=== PATIENT | female | born 1990 | race Caucasian/White ===

== ENCOUNTER → 2018-05-03 | Outpatient (CLI) | payer OTHER | LOC: M SMT 09:14 | PROVIDERS: ATTEND Obstetrics & Gynecology | DX: O20.0 Threatened abortion (principal); Z3A.00 Weeks of gestation of pregnancy not specified ==

== ENCOUNTER → 2018-05-06 | Outpatient (CLI) | payer OTHER | LOC: M SMT 11:36 | PROVIDERS: ATTEND Obstetrics & Gynecology | DX: O20.0 Threatened abortion (principal); Z3A.00 Weeks of gestation of pregnancy not specified ==

== ENCOUNTER → 2018-05-23 | Outpatient (CLI) | payer OTHER | LOC: M SMT 11:51 | PROVIDERS: ATTEND Obstetrics & Gynecology | DX: O03.4 Incomplete spontaneous abortion without complication (principal) ==

== ENCOUNTER → 2020-02-09 | Outpatient (CLI) | payer OTHER ==
--- NOTE | 2020-02-09 14:52 | REP ---
INDICATION: DATING AND VIABILITY. COMPARISON: None. TECHNIQUE: Real-time sonographic evaluation of gravid uterus performed. FINDINGS: There is a single living intrauterine gestation. The estimated gestational age is 13 weeks 2 days based on a crown-rump length of 72 mm. EDC 08/14/2020. heart rate 155 beats per minute. There is no subchorionic hemorrhage. Cervix is closed and measures 3.1 cm in length. The ovaries are within normal limits. IMPRESSION: Viable intrauterine gestation as above. <Electronically signed by Jim Nieves > 02/09/20 [id number]
== END ==
LOC: M WHC 11:52
PROVIDERS: ATTEND Advanced Practice Midwife
DX: Z3A.00 Weeks of gestation of pregnancy not specified (principal)

== ENCOUNTER → 2020-02-20 | Outpatient (CLI) | payer OTHER | LOC: M LAB 07:47 | PROVIDERS: ATTEND Advanced Practice Midwife | DX: Z34.82 Encounter for supervision of other normal pregnancy, second trimester (principal) ==

== ENCOUNTER → 2020-02-21 | Outpatient (CLI) | payer OTHER | LOC: M PLALAB 14:44 | PROVIDERS: ATTEND Specialist | DX: O09.892 Supervision of other high risk pregnancies, second trimester (principal); Z3A.00 Weeks of gestation of pregnancy not specified ==

== ENCOUNTER → 2020-03-14 | Outpatient (CLI) | payer OTHER ==
--- NOTE | 2020-03-15 14:03 | REP ---
INDICATION: ANATOMY. Gestational diabetes affecting . COMPARISON: Comparison study February 09, 2020.. TECHNIQUE: Transabdominal obstetric sonography. FINDINGS: Scanning through the gravid uterus demonstrates a viable single intrauterine gestation in cephalic lie. motion is observed and heart rate is recorded at 156 beats per minute. A anterior placenta is seen, grade 1, without evidence of placenta previa. Amniotic fluid is subjectively normal. Closed cervical length is measured at 3.9 cm transabdominally. No extrauterine abnormality is observed. Amniotic fluid is subjectively normal. The following anatomic structures are identified today and felt to be unremarkable: cranium and intracranial anatomy, nuchal fold face and profile, left ventricular outflow tract view, left-sided stomach, abdominal wall cord insertion, urinary bladder, spine, upper and lower extremities, three-vessel cord. The following anatomic structures were less than optimally seen: nose and lips, four-chamber heart and right ventricular outflow tract view, diaphragm, right and left kidney. Some thinning of the uterine wall is seen at the previous scar. Scan quality is inhibited due to early gestational age maternal body habitus and position. Biometry chart: BPD 3.7 cm, 17 weeks 3 days Head circumference 14.6 cm, 17 weeks 5 days Abdominal circumference 12.2 cm, 17 weeks 6 days Femur length 2.8 cm, 18 weeks 4 days Humeral length 2.7 cm, 18 weeks 3 days HC AC ratio normal 1.20 Cephalic index normal 0.69 Estimated weight 223 g, 0 lb 7 oz, 38th percentile for 18 weeks 0 days IMPRESSION: Viable single intrauterine gestation at 18 weeks 0 days by today's composite sonographic criteria. ANTHONY by today's sonography August 15, 2020. Expected gestational age estimate based on prior sonography 18 weeks 0 days. ANTHONY by prior sonography August 14, 2020. anatomic survey less than complete as above <Electronically signed by Ludwin Barbosa > 03/15/20 [id number]
== END ==
LOC: M WHC 15:16
PROVIDERS: ATTEND Specialist
DX: Z34.82 Encounter for supervision of other normal pregnancy, second trimester (principal)

== ENCOUNTER → 2020-04-18 | Outpatient (CLI) | payer OTHER ==
--- NOTE | 2020-04-22 18:41 | REP ---
INDICATION: F/U ANATOMY EXAM DONE- 04/18/20 COMPARISON: 03/14/2020 TECHNIQUE: Transabdominal obstetrical ultrasound with color Doppler evaluation. FINDINGS: Examination demonstrates a single live intrauterine in cephalic presentation. motion is identified by technologist. Placenta is noted anterior and grade 1 without evidence for placenta previa or abruption. Amniotic fluid volume is normal. Cervix measures 4.2 cm in length and appears closed. Gestational age by 1st ultrasound 23 weeks 1 days with ANTHONY 08/14/2020. Gestational age by current measurements 23 weeks 3 days with ANTHONY 08/12/2020. FHR equals 149 beats per minute. Estimated weight 607 grams (63rdpercentile). Anatomical assessment demonstrates normal structures including four-chamber heart/ventricular outflow tracts, kidneys, and nose/lips. IMPRESSION: 1. Single live intrauterine in cephalic presentation demonstrating appropriate interval growth. 2. Continued limited evaluation of the diaphragm due to positioning. Remainder of the anatomical assessment is complete and normal. <Electronically signed by Abdirahman Grimaldo > 04/22/20 [id number]
== END ==
LOC: M WHC 10:43
PROVIDERS: ATTEND Specialist
DX: Z36.89 Encounter for other specified antenatal screening (principal); Z3A.23 23 weeks gestation of pregnancy

== ENCOUNTER → 2020-05-08 | Outpatient (REF) | payer OTHER ==
[2020-05-08 11:33] LABS: HEMATOCRIT 36.1 % (36.0-47.0); HEMOGLOBIN 12.1 g/dl (12.0-15.5); MEAN CORPUSCULAR HEMOGLOBIN 31.6 pg (27.0-33.0); MEAN CORPUSCULAR HGB CONC 33.5 g/dl (32.0-36.5); MEAN CORPUSCULAR VOLUME 94.3 fl (80.0-96.0); PLATELET COUNT, AUTOMATED 237 10^3/uL (150-450); RED BLOOD COUNT 3.83 10^6/uL (4.00-5.40); WHITE BLOOD COUNT 11.5 10^3/uL (4.0-10.0)
== END ==
LOC: M PLALAB 08:35
PROVIDERS: ATTEND Specialist
DX: Z34.90 Encounter for supervision of normal pregnancy, unspecified, unspecified trimester (principal); Z3A.00 Weeks of gestation of pregnancy not specified
CPT/HCPCS: 36415; 85027; 86850; 86900; 86901; G0463

== ENCOUNTER → 2020-06-05 | Outpatient (CLI) | payer OTHER ==
--- NOTE | 2020-06-06 08:01 | REP ---
INDICATION: BPP/GROWTH/GEST DIABETES COMPARISON: 04/18/2020 TECHNIQUE: Transabdominal obstetrical ultrasound with color Doppler evaluation. FINDINGS: Examination demonstrates a single live intrauterine in cephalic presentation. motion is identified by technologist. Placenta is noted anterior and grade 2 without evidence for placenta previa or abruption. Amniotic fluid volume is normal. Cervix measures 3.2 cm in length and appears closed.. Gestational age by LMP and 1st ultrasound 30 weeks 0 days with ANTHONY 08/14/2020. Gestational age by current measurements 31 weeks 5 days with ANTHONY 08/02/2020. FHR equals 140 beats per minute. LASHAY: 18.6 cm Biophysical profile score: 8/8 Estimated weight 1915 grams (greater than 97thpercentile based on age by 1st ultrasound at 30 weeks 0 days). Umbilical artery SD ratio: 2.62, 2.94 (1.96-4.10) diaphragm appears normal. Technologist cannot exclude a small cystic structure adjacent to the urinary bladder. ultrasound follow-up should be considered. IMPRESSION: 1. Single live advanced gestation in cephalic presentation demonstrating greater than expected interval growth and correlation is required. 2. Anatomical findings as described above may warrant follow-up ultrasound evaluation of the bladder/pelvis. <Electronically signed by Abdirahman Grimaldo > 06/06/20 [id number]
== END ==
LOC: M PLAIMG 14:58
PROVIDERS: ATTEND Obstetrics & Gynecology
DX: O24.415 Gestational diabetes mellitus in pregnancy, controlled by oral hypoglycemic drugs (principal); Z3A.30 30 weeks gestation of pregnancy

== ENCOUNTER → 2020-07-17 | Outpatient (REF) | payer OTHER ==
[~2020-07-17] MED LIST: CLAR5TAB11 PO; GLYB5TAB6 GT; IBUP80TA PO; LANTINJ4 SC; PERCOCET PO; STUACAP PO
== END ==
LOC: M SFHCWAGY 12:52
PROVIDERS: ATTEND Specialist
DX: O24.113 Pre-existing type 2 diabetes mellitus, in pregnancy, third trimester (principal)
CPT/HCPCS: 59025; 87081; G0463

== ENCOUNTER → 2020-07-18 | Outpatient (CLI) | payer OTHER ==
--- NOTE | 2020-07-18 15:50 | REP ---
INDICATION: GROWTH/DIABETES COMPARISON: 06/05/2020 TECHNIQUE: Transabdominal obstetrical ultrasound with color Doppler evaluation. FINDINGS: Examination demonstrates a single live intrauterine in cephalic presentation. motion is identified by technologist. Placenta is noted anterior and grade 2 without evidence for placenta previa or abruption. Amniotic fluid volume is normal. Cervix measures 3.5 cm in length and appears closed.. Gestational age by LMP and 1st U/S 36 weeks 1 day with ANTHONY 08/14/2020. Gestational age by current measurements 38 weeks 6 days with ANTHONY 07/26/2020. FHR equals 130 beats per minute. BPD: 9.5 cm at 30 weeks 5 days HC: 34.5 cm at 39 weeks 6 days AC: 36.6 cm at 40 weeks 3 days FL: 7.3 cm at 37 weeks 4 days HL: 6.5 cm at 38 weeks 0 days HC/AC: 0.94 Estimated weight 3830 grams (greater than 97th percentile based on age by 1st ultrasound). LASHAY: 17.2 cm (7.7-24.8) Umbilical artery SD ratio: 2.36, 2.14 (1.63-3.50) IMPRESSION: Single live intrauterine in cephalic presentation. Greater than expected interval growth cannot be excluded and warrants correlation. <Electronically signed by Abdirahman Grimaldo > 07/18/20 [id number]
== END ==
LOC: M WHC 15:01
PROVIDERS: ATTEND Specialist
DX: O24.415 Gestational diabetes mellitus in pregnancy, controlled by oral hypoglycemic drugs (principal); Z3A.38 38 weeks gestation of pregnancy

== ENCOUNTER 2020-07-26 12:18 | Inpatient (IN) | payer OTHER ==
[2020-07-26] VITALS (18 sets, daily range): BP systolic 96–123; BP diastolic 52–63
[~2020-07-26] VITALS: Ht 162.6 cm; Wt 114.3 kg
[2020-07-26] MEDS ORDERED: LACTATED RINGER'S 1000 ML IV STA (12:47)
[2020-07-26] MEDS ORDERED: LIDOCAINE 1% MDV 20ML VIAL INFIL PRN (12:50)
[2020-07-26] MEDS ORDERED: METHYLERGONOVINE MALEATE 0.2 MG/ML VIAL (J2210) IM PRN (12:50)
[2020-07-26] MEDS ORDERED: OXYTOCIN DRIP 30 UNITS in IV 1 EA IV PRN (12:50)
[2020-07-26] MEDS ORDERED: OXYTOCIN INJ 10 UNITS/ML VIAL (J2590) IV PRN (12:50)
[2020-07-26 13:16] LABS: HEMATOCRIT 33.9 % (36.0-47.0); HEMOGLOBIN 11.3 g/dl (12.0-15.5); MEAN CORPUSCULAR HEMOGLOBIN 30.6 pg (27.0-33.0); MEAN CORPUSCULAR HGB CONC 33.3 g/dl (32.0-36.5); MEAN CORPUSCULAR VOLUME 91.9 fl (80.0-96.0); PLATELET COUNT, AUTOMATED 202 10^3/uL (150-450); RED BLOOD COUNT 3.69 10^6/uL (4.00-5.40); WHITE BLOOD COUNT 8.7 10^3/uL (4.0-10.0)
[2020-07-26] MEDS ORDERED: CLAR5TAB11 PO ×2 (13:24)
[2020-07-26] MEDS ORDERED: LANTINJ4 SC (13:25)
[2020-07-26] MEDS ORDERED: GLYB5TAB6 GT (13:25)
[2020-07-26] MEDS ORDERED: STUACAP PO (13:27)
[2020-07-26 13:46] LABS: ALBUMIN 2.3 GM/DL (3.2-5.2); ALT/SGPT 13 U/L (12-78); BILIRUBIN,TOTAL 0.4 MG/DL (0.2-1.0); BLOOD UREA NITROGEN 8 MG/DL (7-18); CALCIUM LEVEL 8.5 MG/DL (8.5-10.1); CARBON DIOXIDE LEVEL 22 MEQ/L (21-32); CHLORIDE LEVEL 108 MEQ/L (98-107); CREATININE FOR GFR 0.46 MG/DL (0.55-1.30); GLOMERULAR FILTRATION RATE > 60.0 (>60); GLUCOSE, FASTING 167 MG/DL (70-100); POTASSIUM SERUM 4.2 MEQ/L (3.5-5.1); SODIUM LEVEL 138 MEQ/L (136-145); TOTAL PROTEIN 5.8 GM/DL (6.4-8.2)
[2020-07-26] MEDS ORDERED: OXYTOCIN DRIP 30 UNITS in IV 1 EA IV SCH (13:55)
[2020-07-26] MEDS: LR 1,000 ML IV SCH (13:55)
--- NOTE | 2020-07-26 14:23 | HPEPDOC ---
Obstetrical History & Physical General Date of Admission Jul 26, 2020 at 12:18 History of Present Illness Chief Complaint: Induction of labor (pregestational diabetes) Age: 30 : 7 Term: 1 Pre-term: 0 Abortions: 5 Livin Care Care: Good Care Dating Final EDC by: 1st trimester (US) EGA at Admission: 37 (+1) Antepartum Course Pre- weight (lbs.): 226 Past Medical History Past Obstetrical History : Past Obstetrical History: Primgravida (2016) Type of Delivery: Ceserean section Sex of : Male (7#8) Complications: Yes (preeclampsia, GDM, failed IOL) PHARMACEUTICAL SALES SPECIALIST History: Spontaneous Past Medical History Medical History OCD, ADHD, asymptomatic enlarged thyroid Surgical History: Appendectomy, section Family History Significant Family History: Diabetes, Heart disease, Hypertension, Other (bipolar, anxiety) Social History Marital Status: Family situation: Spouse/partner home Psychosocial History: Att. deficit disorder * Smoker: non-smoker Alcohol: Denies Drugs: denies Abuse Violence Screening Have you been hit/kicked/slapp: No Have you been sexually assault: No Imunizations Tdap status: declined Influenza Status: declined Allergies Coded Allergies: No Known Allergies (Unverified , 07/26/20) Medications Scheduled Insulin Glargine,Hum.rec.anlog (Lantus Solostar) 100 Unit/1 Ml Insuln.pen, 20 UNIT SC QPM Loratadine (Claritin) 5 Mg Tab.rapdis, 1 TAB PO DAILY for allergy symptoms Miscellaneous Medications Glyburide (Glyburide) 5 Mg Tablet, 5 MG GT Pnv No.63/Iron,Carb/Folic/Dha (Terry One Capsule) 1 Each Capsule, 1 CAP PO Physical Examination Physical Examination GENERAL: Alert and oriented times three. BREAST: . ABDOMEN: Gravid and non-tender to touch. FETUS: Is vertex (VTX) by sterile vaginal examination (SVE), fetus is vertex (VTX) by Peyman. EFW 8.5-9# HEART RATE: Regular rate and rhythm. LUNGS: Clear to auscultation (CTA). EXTREMITIES: No edema. No clonus. Deep tendon reflexes (DTRs) + 2. Laboratory Data 24H LABS Laboratory Tests 2 07/26/20 12:44: Serology Scanned Report Hepatitis B Testing 07/26/20 12:54: Nucleated Red Blood Cells % (auto) 0.0 07/26/20 12:55: Anion Gap 8, Glomerular Filtration Rate > 60.0, Calcium Level 8.5, Total Bilirubin 0.4, Aspartate Amino Transf (AST/SGOT) 9, Alanine Aminotransferase (ALT/SGPT) 13, Alkaline Phosphatase 127H, Total Protein 5.8L, Albumin 2.3L, Al bumin/Globulin Ratio 0.7L CBC/BMP Laboratory Tests 07/26/20 12:54 07/26/20 12:55 Pertinent Laboratoy Data Blood Type: O+ RBC Antibody Screen: Negative HIV: Negative Hepatitis B: Negative Hepatitis C: Negative Rapid Plasma Reagin: Nonreactive Rubella: Nonreactive (equivocal) Chlamydia/Gonorrhea: Negative Group B Streptococcus: Negative Glucose Tolerance Test: 176 (106, 231, 191, 126. pregestational diabetes) Anatomy Ultrasound Ultrasound Date: Mar 14, 2020 Placenta Location: Anterior Normal Anatomy: Yes (incomplete) Placenta Previa: No Estimated Weight (grams): 223 (38%; thinning of scar noted) Other Ultrasounds 02/08/2021 13w2d, ANTHONY 08/14/2020 04/22/2020 Cephalic, anterior placenta, no previa, normal fluid. EFW 607gm, 63%, normal f/u 06/05/2020 cephalic, anterior placenta, no previa. LASHAY 18.6. BPP 8/8. EFW 1915gm, >97% 07/18/2020 cephalic, anterior placenta, no previa. LASHAY 17.2. EFW 3830gm, >97%. S/D 2.36 and 2.14 Steroid Therapy Steroid Therapy: No Vaginal Examination Dilation: 1cm Effacement: 50% Station: -3 Cervical Consistency: Medium Cervical Position: Posterior Presentation: Cephalic presentation Assessment Heart Rate (FHR): 145 Variability: Moderate Accelerations: Positive Decelerations: None Tocometer Contractions: No Assessment/Plan Assessment Antoinette is a 30-year-old (G)7 para (P)1-0-5-1 at 37+1 weeks by 13-week ultrasound. Presents to Labor and Delivery (L&D) induction due to pregestational diabetes, currently on insulin and pm "glyburide depending on what I eat." Risks and benefits of induction of TOLAC have been thoroughly reviewed with patient including uterine rupture. Patient is aware of sono showing thinning of previous scar and desires attempt at TOLAC. Plan Admit and orient per consult Dr Paulino Radio Program Director and consent. Diet: clear liquids. Group B Streptococcus (GBS) negative. Labs and intravenous (IV) per unit protocol. Counseled on Pitocin and induction of labor (IOL). Unsuccessful placement of cooks catheter attempted. Insulin drip as required. Lactated Ringers (LR): Bolus 500 mL, then at 125 mL/hr. Plans to labor ad jonathon Anticipate successful . C-S as appropriate. Kristy Sellers CNM Jul 26, 2020 14:04
[2020-07-26] MEDS ORDERED: INSULIN IV RATE CHANGE DOCUMENTATION ML/HR XX SCH (14:30)
[2020-07-26] MEDS ORDERED: INSULIN REGULAR IN 0.9 % NACL 100 UNIT in IV 1 EA IV SCH ×2 (14:30)
[2020-07-26] MEDS ORDERED: NS 1,000 ML IV SCH (14:30)
[2020-07-26 14:34] LABS: HEMOGLOBIN A1c 5.5 %
--- NOTE | 2020-07-26 20:29 | IPNPDOC ---
Text Note Date of Service The patient was seen on 07/26/20. NOTE Progress Denies current discomfort. Low dose pitocin all night due to history. Refuses lopez bulb at this time. UC 2-5 minutes x 30-45 seconds FH 135, Cat I SVE 150/-3, anterior. Crying with exam, guarding. Will maintain low dose pitocin ripening all night. VS,Fishbone, I+O VS, Fishbone, I+O Laboratory Tests 07/26/20 12:54 07/26/20 12:55 Vital Signs Date Time Temp Pulse Resp B/P (MAP) Pulse Ox O2 Delivery O2 Flow Rate FiO2 07/26/20 18:53 74 98/57 (71) 07/26/20 18:02 97.4 18 Kristy Sellers CNM Jul 26, 2020 20:29
[2020-07-27] VITALS (21 sets, daily range): BP systolic 83–119; BP diastolic 45–69
--- NOTE | 2020-07-27 05:24 | IPNPDOC ---
Text Note Date of Service The patient was seen on 07/27/20. NOTE Progress Remains comfortable Cat I tracing UC 2-4 minutes, mild Pitocin at 6mu GLucose reading 116, pt refused insulin Will update Dr Paulino. VSFiona, I+O VSFiona, I+O Laboratory Tests 07/26/20 12:54 07/26/20 12:55 Vital Signs Date Time Temp Pulse Resp B/P (MAP) Pulse Ox O2 Delivery O2 Flow Rate FiO2 07/27/20 00:53 86 113/64 (80) 07/26/20 18:02 97.4 18 I&O- Last 24 Hours up to 6 AM 07/27/20 05:59 Intake Total 320 ml Output Total 2900 ml Balance -2580 ml Kristy Sellers CNM Jul 27, 2020 05:24
--- NOTE | 2020-07-27 15:58 | IPNPDOC ---
Obstetrical Progress Note Date of Service Jul 27, 2020 Subjective 30yo at 37w3d IOL for DM. Objective Vital Signs Date Time Temp Pulse Resp B/P (MAP) Pulse Ox O2 Delivery O2 Flow Rate FiO2 07/27/20 14:13 73 18 119/69 (86) 07/26/20 18:02 97.4 Assessment Variability: Moderate Heart Rate Tracing: Category I Tocometer Contractions: Yes Sterile Vaginal Examination Dilation: 1cm (unchanged from previous exam) Effacement (%): 50% Station: -3 Cervical Position: Posterior Postion/Presentation: Cephalic presentation Assessment and Plan Age: 30 : 7 Livin Status: Reassuring Anticipate: Section Additional Comments Patient declines cook cath or other methods of induction and desires to proceed with repeat c/s. Has also expressed desire for permeant sterilization with SAMMY BURR MD. Jul 27, 2020 15:58
[2020-07-27] MEDS ORDERED: ceFAZolin SOD 2 GM in IV 1 EA IV ONE (16:00)
[2020-07-27] MEDS ORDERED: BICITRA 30ML SOLN UDC PO ONE (16:00)
[2020-07-27] MEDS ORDERED: AZITHROMYCIN INJ 500 MG, VIAL MATE ADAPTER 1 EACH in NS 250 ML IV ONE (16:00)
[2020-07-27] MEDS: LR 1,000 ML IV SCH (17:12)
[2020-07-27] MEDS ORDERED: MORPHINE PRES-FREE INJ 10 MG/10 ML VIAL (J2274) As Ordered ONE (17:55)
[2020-07-27] MEDS ORDERED: OXYTOCIN INJ 10 UNITS/ML VIAL (J2590) As Ordered ONE ×2 (17:56→17:59)
[2020-07-27] MEDS ORDERED: ONDANSETRON 4MG/2ML VIAL As Ordered ONE (17:59)
[2020-07-27] MEDS ORDERED: KETOROLAC 60MG 2ML VIAL As Ordered ONE (17:59)
[2020-07-27] MEDS ORDERED: NALOXONE INJ 0.4MG/1ML VIAL (J2310 PER 1MG) IV PRN ×2 (18:19)
[2020-07-27] MEDS ORDERED: diphenhydrAMINE 50MG/ML VIAL (J1200) IV PRN (18:19)
[2020-07-27] MEDS ORDERED: METOCLOPRAMIDE INJ 10MG/2ML VIAL (J2765 PER 1) IV PRN ×2 (18:19→19:40)
[2020-07-27] MEDS ORDERED: ONDANSETRON 4MG/2ML VIAL IV PRN ×3 (18:19→19:40)
[2020-07-27] MEDS ORDERED: NALBUPHINE HCL 10 MG/ML AMP (J2300) IV PRN (18:19)
[2020-07-27] MEDS ORDERED: ATROPINE SULF 0.4 MG/ML 1ML VIAL (J0461) As Ordered ONE (18:23)
[2020-07-27] MEDS ORDERED: SIMETHICONE 80MG CHEW TAB PO PRN (18:25)
[2020-07-27] MEDS ORDERED: LR 1,000 ML IV SCH ×2 (18:25→19:40)
[2020-07-27] MEDS ORDERED: PERCOCET 5MG/325MG TAB PO PRN ×2 (18:25→19:40)
[2020-07-27] MEDS ORDERED: RHOGAM 300 MCG (1500 IU) INJ (J2790) IM SCH (18:25)
[2020-07-27] MEDS ORDERED: MEASLES,MUMPS,RUBELLA VACCINE INJ (MMR-II) (90707) SC SCH (18:25)
[2020-07-27] MEDS ORDERED: MOM 30ML SUSPENSION UDC PO PRN (18:25)
[2020-07-27] MEDS ORDERED: OXYTOCIN DRIP 30 UNITS in IV 1 EA IV SCH (18:25)
[2020-07-27] MEDS ORDERED: ePHEDrine SULFATE 25 MG/5 ML(5MG/ML) SYRINGE As Ordered ONE (18:49)
--- NOTE | 2020-07-27 19:21 | ROOPDOC ---
[facility] Report Of Operation Report of Operation DATE OF PROCEDURE: 07/27/20 SURGEON: Oneida Paulino M.D. CUSTOMER RELATIONS ASSISTANT: Channing Wen M.D. ( essential for tissue retractions, exposure and delivery of ) PROCEDURE: Repeat section with Bilateral [place] tubal ligation PREOPERATIVE DIAGNOSIS: 1. History of prior section 2. Failed trial labor after section 3. Satisfied parity with undesired fertility POSTOPERATIVE DIAGNOSIS: 1. History of prior section 2. Failed trial labor after section 3. Satisfied parity with undesired fertility ANESTHESIA: Spinal ESTIMATED BLOOD LOSS: 700 mL URINE OUTPUT: 100 mL INTRAVENOUS FLUIDS:1200 mL of lactated Ringer's solution PREOPERATIVE ANTIBIOTICS:. 2 g of Ancef and 500 azithromycin OPERATIVE FINDINGS: Liveborn female , Apgars 5 and 9. Weight 4260 g or 9 lbs. 6 oz. SPECIMENS: Bilateral segments of fallopian tubes DESCRIPTION OF PROCEDURE: After informed consent was obtained and written consent was reviewed. The patient was brought to the operating room where spinal anesthesia was placed. She was then placed in the supine position with a left lateral tilt. Calvert catheter was placed and to gravity. Patient was then prepped and draped in the normal sterile fashion. A timeout operating room was performed identifying the patient, procedure be performed as well as drug allergies. Anesthesia was tested and deemed to be adequate. Pfannenstiel skin incision was made and this was carried down to the underlying rectus fascia. The fascia was then scored and this incision was extended bilaterally. The fascia was then d issected off the underlying rectus muscle superiorly and inferiorly. The rectus muscles were then in the midline. The peritoneum is then entered. Vesicouterine peritoneum was then tented and excised and a bladder flap was created. Mobius retractor was then placed. Next, a curvilinear incision was then made in the lower uterine segment. Amniotomy was performed, productive, clear fluid. The head was brought to the level of the incision atraumatically and delivered along the shoulders and corpus. The cord was clamped x2. The was brought over to the warmer with a good cry. Placenta was drained and delivered grossly intact. The uterus was cleared of all clots and debris and the uterine incision was then closed using 0 Vicryl in a running locking fashion followed by a second layer of 0 Vicryl in a running nonlocking fashion for imbrication. Attention was then turned to a bilateral [place] tubal ligation. A window was created in the right mesosalpinx. This area was doubly ligated with 3-0 chromic and was excised with good hemostasis noted. In a similar fashion, the left fallopian tube was placed on traction. A window was created in the mesosalpinx. This area was doubly ligated with 3-0 chromic and was excised, and hemostasis was noted. The abdomen suctioned. Surgical sites reinspected and noted be hemostatic. The retractor was then removed. The anterior peritoneum was then reapproximated with 3-0 Vicryl. The rectus muscles were reapproximated 3-0 Vicryl. The fascia was then closed using 0 Vicryl in a running nonlocking fashion. The subcutaneous tissues was then irrigated and suctioned. Subcutaneous tissue was reapproximated using 3-0 Vicryl. Several subdermal stitch is placed using 3-0 Vicryl and the skin was closed with 4-0 Monocryl and subcuticular fashion. This incision was then cleaned and dried and was dressed. The patient was then taken to recovery in stable condition. All counts were correct. My surgical aides teacher Dr. Wen played in an essential role during the operation. He assisted with tissue identification retraction, delivery of the , as well as wound closure. ONEIDA PAULINO MD. Jul 27, 2020 19:21
[2020-07-27] MEDS ORDERED: OXYTOCIN 30 UNITS IN 0.9% NaCl 500ML IV BAG (J2590) As Ordered ONE (19:32)
[2020-07-27] MEDS ORDERED: fentaNYL 100 MCG/2 ML INJECTION (J3010) IV PRN (19:40)
[2020-07-27] MEDS ORDERED: fentaNYL 100 MCG/2 ML INJECTION (J3010) As Ordered ONE (19:43)
[2020-07-27] MEDS ORDERED: PERCOCET 5MG/325MG TAB As Ordered ONE (20:17)
[2020-07-27] MEDS: PERCOCET 5MG/325MG TAB PO PRN (20:18)
[2020-07-27] MEDS: DOCUSATE SODIUM 100MG CAPSULE PO SCH (21:16)
[2020-07-28] VITALS (7 sets, daily range): BP systolic 101–119; BP diastolic 52–69
[2020-07-28] MEDS: KETOROLAC 30 MG/ML 1ML VIAL IV SCH ×3 (00:52→13:57)
[2020-07-28] MEDS: PERCOCET 5MG/325MG TAB PO PRN ×3 (03:08→18:35)
[2020-07-28 07:52] LABS: HEMATOCRIT 28.8 % (36.0-47.0); HEMOGLOBIN 9.4 g/dl (12.0-15.5); MEAN CORPUSCULAR HEMOGLOBIN 30.2 pg (27.0-33.0); MEAN CORPUSCULAR HGB CONC 32.6 g/dl (32.0-36.5); MEAN CORPUSCULAR VOLUME 92.6 fl (80.0-96.0); PLATELET COUNT, AUTOMATED 209 10^3/uL (150-450); RED BLOOD COUNT 3.11 10^6/uL (4.00-5.40); WHITE BLOOD COUNT 10.9 10^3/uL (4.0-10.0)
[2020-07-28] MEDS: DOCUSATE SODIUM 100MG CAPSULE PO SCH ×2 (08:10→21:09)
[2020-07-28] MEDS: PRENATAL VITAMINS CHEWABLE TABLET PO SCH (08:10)
--- NOTE | 2020-07-28 13:45 | IPNPDOC ---
Progress Note Date of Service: Jul 28, 2020 Day#: 1 Progress Note SUBJECT: Doing well without complaints. Ambulating, voiding and pain is well- controlled. Reports minimal lochia. OBJECTIVE: VITAL SIGNS: Within normal limits, afebrile. Alert and oriented times three. Abdomen: Fundus firm at U-2. Soft, NTTP. Incision: dressed Ext: neg calf tenderness. ASSESSMENT: /postoperative day #1 status post delivery. Recovering in stable condition. PLAN: 1. Continue routine /postoperative care 2. Discharge plans for tomorrow VS, I&O, 24H, Fishbone Vital Signs/I&O Vital Signs Date Time Temp Pulse Resp B/P (MAP) Pulse Ox O2 Delivery O2 Flow Rate FiO2 07/28/20 12:56 12 07/28/20 10:00 97.0 82 105/56 (72) 98 Room Air I&O- Last 24 Hours up to 6 AM 07/28/20 06:00 Intake Total 1100 ml Output Total 1410 ml Balance -310 ml Laboratory Data 24H LABS Laboratory Tests 2 07/27/20 16:40: Bedside Glucose (Misc Panel) 71 07/28/20 07:33: Nucleated Red Blood Cells % (auto) 0.0 CBC/BMP Laboratory Tests 07/28/20 07:33 SAMMY ZHANG MD. Jul 28, 2020 13:45
[2020-07-28] MEDS: IBUPROFEN 800 MG TAB PO SCH (21:09)
[2020-07-29] MEDS: PERCOCET 5MG/325MG TAB PO PRN ×4 (01:45→21:05)
[2020-07-29 02:00] VITALS: BP 106/50
[2020-07-29] MEDS ORDERED: PERCOCET PO (04:51)
[2020-07-29] MEDS ORDERED: IBUP80TA PO (04:51)
[2020-07-29] MEDS: IBUPROFEN 800 MG TAB PO SCH ×3 (04:56→21:05)
[2020-07-29 06:00] VITALS: BP 129/72
[2020-07-29] MEDS: PRENATAL VITAMINS CHEWABLE TABLET PO SCH (09:30)
[2020-07-29] MEDS: DOCUSATE SODIUM 100MG CAPSULE PO SCH ×2 (09:31→21:04)
[2020-07-29 10:00] VITALS: BP 117/61
[2020-07-29 14:00] VITALS: BP 123/56
[2020-07-29 18:53] VITALS: BP 118/58
--- NOTE | 2020-07-29 21:49 | IPNPDOC ---
Progress Note Date of Service: Jul 29, 2020 Day#: 2 Progress Note SUBJECT: Antoinette had a repeat section. Baby is in NICU. She is curre ntly . She is ambulating but having occasional bouts of pain. Reports vaginal bleeding has been light. Ambulating without difficulty. Eating a regular diet and tolerating it. Desires to stay for 1 more day for pain control and because she is frequently. OBJECTIVE: VITAL SIGNS: Within normal limits, afebrile. Alert and oriented times three. Breath sounds clear to auscultation. Abdomen: Fundus firm. Dressing intact without erythema. Minimal lochia. ASSESSMENT: Day 2 postoperative. PLAN: 1. Continue supportive nursing care. 2. Saline lock to be removed. 3. Anticipate discharge to home tomorrow. 4. Continue pain management. VS, I&O, 24H, Fishbone Vital Signs/I&O Vital Signs Date Time Temp Pulse Resp B/P (MAP) Pulse Ox O2 Delivery O2 Flow Rate FiO2 07/29/20 21:05 16 Room Air 07/29/20 18:53 98.4 82 118/58 (78) 98 I&O- Last 24 Hours up to 6 AM 07/29/20 06:00 Intake Total 500 ml Output Total 950 ml Balance -450 ml VANNESSA HOLLINS CNM Jul 29, 2020 21:49
[2020-07-30] MEDS: PERCOCET 5MG/325MG TAB PO PRN ×2 (03:16→14:13)
[2020-07-30 06:00] VITALS: BP 116/66
[2020-07-30] MEDS: IBUPROFEN 800 MG TAB PO SCH ×2 (06:28→12:45)
--- NOTE | 2020-07-30 07:34 | DS.PDOC ---
Discharge Summary General Date of Admission Jul 26, 2020 at 12:18 Date of Discharge 07/30/20 Attending Physician: SAMMY ZHANG MD. Discharge Summary PROCEDURES PERFORMED DURING STAY: section with bilateral tubal ligation ADMITTING DIAGNOSES: 1. IUP at 37+ weeks gestation. 2. Trial of labor 3. Prior section 4. Pregestational diabetes DISCHARGE DIAGNOSES: 1. section with tubal ligation. 2. Day 2 postoperative COMPLICATIONS/CHIEF COMPLAINT: Induction. HISTORY OF PRESENT ILLNESS: Antoinette is a 30-year-old female who presented for a trial of labor. She requested a repeat section after no change with IV Pitocin and refusing a cervical lopez balloon. She also requested sterilization. Her is in the NICU currently as her was complicated by pregestational diabetes. She desires to be discharged to home. DISCHARGE MEDICATIONS: Please see below. ALLERGIES: Please see below. PHYSICAL EXAMINATION ON DISCHARGE: VITAL SIGNS: Please see below. GENERAL: Does not appear to be in any distress. Sitting up in bed eating breakfast. RESPIRATORY EXAMINATION: regular rate without use of accessory muscles. ABDOMINAL EXAMINATION: dressing is intact without erythema surrounding dressing. EXTREMITIES: generalized edema bilateral legs and feet. SKIN: warm and dry without any lesions or rashes. NEUROLOGICAL EXAMINATION: alert and oriented. PSYCHIATRIC EXAMINATION: patient is pleasant LABORATORY DATA: Please see below. ACTIVITY: As tolerated. Pelvic rest. DIET: regular DISCHARGE INSTRUCTIONS: 1. Patient to be seen in 1-2 weeks and again in 6-8 weeks. 2. Discharge to home. 3. Education done on incisional care, removal of dressing, signs of infection, DVT, pulmonary embolism, mastitis, endometritis, depression. DISCHARGE CONDITION: Stable. Vital Signs/I&Os Vital Signs Date Time Temp Pulse Resp B/P (MAP) Pulse Ox O2 Delivery O2 Flow Rate FiO2 07/30/20 06:00 97.4 84 20 116/66 (83) 98 Room Air Laboratory Data CBC/BMP Item Value Date Time White Blood Count 10.9 10^3/uL H 07/28/20 0733 Red Blood Count 3.11 10^6/uL L 07/28/20 0733 Hemoglobin 9.4 g/dl L 07/28/20 0733 Hematocrit 28.8 % L 07/28/20 0733 Mean Corpuscular Volume 92.6 fl 07/28/20 0733 Mean Corpuscular Hemoglobin 30.2 pg 07/28/20 0733 Mean Corpuscular Hemoglobin Concent 32.6 g/dl 07/28/20 07 Red Cell Distribution Width 13.3 % 07/28/20 07 Platelet Count 209 10^3/uL 07/28/20 0733 Discharge Medications Scheduled Ibuprofen (Ibuprofen) 800 Mg Tablet, 800 MG PO Q8H Loratadine (Claritin) 5 Mg Tab.rapdis, 1 TAB PO DAILY for allergy symptoms, (Reported) Scheduled PRN Oxycodone/Acetaminophen (Oxycodone-Acetaminophen 5-325) 1 Each Tablet, 1-2 TAB PO Q6H PRN for SEVERE PAIN (PS 8-10) Miscellaneous Medications Pnv No.63/Iron,Carb/Folic/Dha (Terry One Capsule) 1 Each Capsule, 1 CAP PO, (Reported) Allergies Coded Allergies: No Known Allergies (Unverified , 07/26/20) VANNESSA HOLLINS CNM Jul 30, 2020 07:34
[2020-07-30] MEDS: DOCUSATE SODIUM 100MG CAPSULE PO SCH (07:44)
[2020-07-30] MEDS: PRENATAL VITAMINS CHEWABLE TABLET PO SCH (07:45)
== END 2020-07-30 14:20 | disposition home or self-care (01) | DRG 785 ==
LOC: M LDI 12:18 → M OBS 07-27 20:50
PROVIDERS: ADMIT Advanced Practice Midwife; ATTEND Advanced Practice Midwife
PROC: 3E033VJ Introduction of Other Hormone into Peripheral Vein, Percutaneous Approach (ICD-10-PCS; 2020-07-26)
PROC: 0UB70ZZ Excision of Bilateral Fallopian Tubes, Open Approach (ICD-10-PCS; 2020-07-27)
PROC: 10D00Z1 Extraction of Products of Conception, Low, Open Approach (ICD-10-PCS; principal; 2020-07-27 19:00)
DX: O24.12 Pre-existing type 2 diabetes mellitus, in childbirth (principal); O34.211 Maternal care for low transverse scar from previous cesarean delivery; Z37.0 Single live birth; Z3A.37 37 weeks gestation of pregnancy; E11.65 Type 2 diabetes mellitus with hyperglycemia; Z30.2 Encounter for sterilization; O66.41 Failed attempted vaginal birth after previous cesarean delivery; Z79.4 Long term (current) use of insulin